=== PATIENT | female | born 1940 | race Caucasian/White ===

== ENCOUNTER → 2017-06-22 | Outpatient (CLI) | payer MEDICARE, OTHER ==
[~2017-06-22] MED LIST: ASPIRIN PO; CELEBREX PO; CELEXA PO; EVISTA60 MG PO; FLOMAX0.4 MG PO; LOTREL 5/10 MG1 CAP PO; MULTIVITAMIN; NEXIUM PO
--- NOTE | ~2017-06-22 | MY29 ---
[facility] A Service of [facility] / [facility] RADIOLOGY TEXT RESULTS PATIENT: SOPHIA TOBAR LOCATION: [facility] : 42 UNIT #: [id number] AGE: [address]: Julienne Doe MD SEX: F ORDER DR: [id number] [facility] [address] [place], [place] [address] [id number] O MR#: [id number] Acc #: [id number] NAME: SOPHIA TOBAR : 1940 SEX: F STUDY DATE/TIME: 06/22/2017 12:22 UNIT: [facility] ROOM: STUDY DESCRIPTION: [facility] SCREENING W/ CAD BILAT Attending Physician: Julienne Doe M.D. Referring Physician: Julienne Doe M.D. Ordering Physician: Julienne Doe M.D. Primary Care Physician: Julienne Doe M.D. MEDICAL IMAGING REPORT This report is preliminary unless electronic signature is present EXAM Mammogram, 06/22. INDICATIONS 77-year-old. No personal history but a positive family history of breast cancer in her sisters. No current complaints. COMPARISON Comparison made with 11/21/2015, 05/02/2014 FINDINGS Routine digital screening views of both breasts were obtained. The study is reviewed with an FDA-approved CAD device. Breast parenchyma shows scattered fibroglandular densities. No masses or suspicious microcalcifications are seen. Benign calcifications are present in both breasts. IMPRESSION Benign mammogram. Routine screen 1 year recommended. Patients over the age of 40 are entered into a reminder system with target due date for the next mammogram. BIRADS: 2 Benign finding. Dictated by... Darwin Joy Jr., M.D. THIS IS AN ELECTRONICALLY VERIFIED REPORT Darwin Joy Jr., M.D. at 06/23/2017 4:38 PM IRISK/lucas [facility] A Service of [facility] / [facility] RADIOLOGY TEXT RESULTS PATIENT: SOPHIA TOBAR LOCATION: [facility] : 42 UNIT #: [id number] AGE: [address]: Julienne Doe MD SEX: F ORDER DR: TD: 06/23/2017 07:10 JOB #: [id number] MEDICAL IMAGING REPORT Page 1 of 1 COPY
== END | disposition home or self-care (01) ==
LOC: CWCC 12:11
DX: Z12.31 Encounter for screening mammogram for malignant neoplasm of breast (principal); Z80.3 Family history of malignant neoplasm of breast
CPT/HCPCS: G0202